=== PATIENT | female | born 1970 | race Caucasian/White ===

== ENCOUNTER 2021-09-21 06:06 | Inpatient (IN) | payer MEDICAID ==
[~2021-09-21] VITALS: Ht 154.9 cm; Wt 90.0 kg
[2021-09-21 07:29] LABS: EOSINOPHILS % 5.2 % (0.0-5.0); HEMATOCRIT. 28.6 % (36.0-48.0); HEMOGLOBIN. 9.4 g/dL (12.0-16.0); LYMPHOCYTES % 16.5 % (20.0-50.0); MEAN CORPUSCULAR HEMOGLOBIN 29.4 pg (28.0-32.0); MEAN CORPUSCULAR VOLUME 89.5 fL (81.0-99.0); MEAN PLATELET VOLUME 9.8 fl (7.4-10.4); MONOCYTES % 5.1 % (2.0-8.0); NEUTROPHILS % 72.2 % (40.0-76.0); PLATELET 154 x1000/uL (130-400); RED BLOOD CELL COUNT 3.19 mill/uL (4.2-5.4); RED CELL DISTRIBUTION WIDTH 16.8 % (11.6-14.6)
[2021-09-21 07:35] LABS: CHLORIDE 104 mEq/L (98-107)
[2021-09-21] MEDS ORDERED: CALCIUM GLUCONATE 1,000 MG in DEXT 5% WATER 100 ML IV ONE (08:15)
[2021-09-21] MEDS ORDERED: INSULIN REGULAR (HUMULIN R) 300UNITS/3ML VIAL IV ONE (08:15)
[2021-09-21] MEDS ORDERED: DEXTROSE 50% WATER 50ML SYRINGE IV ONE ×3 (08:15→11:46)
[2021-09-21] MEDS ORDERED: SODIUM BICARBONATE 8.4% 1 MEQ/ML 50ML SYR IV ONE (08:15)
[2021-09-21] MEDS ORDERED: DIPHENHYDRAMINE 50MG/ML VIAL IV PRN (11:00)
[2021-09-21] MEDS ORDERED: GUAIFENESIN 200MG/10ML SUGAR FREE UDC PO PRN (11:00)
[2021-09-21] MEDS ORDERED: HYDROCODONE/ACETAMINOPHEN 5/325MG TABLET PO PRN (11:00)
[2021-09-21] MEDS ORDERED: NA PHOS,M-B/NA PHOS,DI-BA ENEMA 118ML PR PRN (11:00)
[2021-09-21] MEDS ORDERED: MAGNESIUM/ALUMINUM HYDROXIDE/SIMETHICONE 30ML UDC PO PRN (11:00)
[2021-09-21] MEDS ORDERED: IPRATROPIUM/ALBUTEROL 0.5-3(2.5)MG/3ML NEB NEB PRN (11:00)
[2021-09-21] MEDS ORDERED: LORAZEPAM 2MG/ML CPJ IV PRN (11:00)
[2021-09-21] MEDS ORDERED: DOCUSATE SODIUM 100MG CAPSULE PO PRN (11:00)
[2021-09-21] MEDS ORDERED: ONDANSETRON HCL 4MG/2ML INJ IV PRN (11:00)
[2021-09-21] MEDS: CLONIDINE 0.1MG TABLET PO PRN ×2 (12:41→20:16)
[2021-09-21 16:23] LABS: CHLORIDE 101 mEq/L (98-107)
[2021-09-21] MEDS: ACETAMINOPHEN 325MG TABLET PO PRN (20:16)
[2021-09-21 20:50] LABS: HEPATITIS B SURFACE ANTIGEN NEGATIVE
[2021-09-21] MEDS: ENOXAPARIN 30MG/0.3ML SYR SUBCUT SCH (21:33)
[2021-09-21] MEDS: EPOETIN ALFA-EPBX 10,000 UNIT/ML VIAL SUBCUT SCH (21:33)
[2021-09-21] MEDS ORDERED: NALOXONE HCL 0.4MG/ML VIAL IV PRN (21:45)
[2021-09-21 22:30] VITALS: BP 168/75
[2021-09-21 23:00] VITALS: BP 168/75
[2021-09-22] VITALS (8 sets, daily range): BP systolic 107–191; BP diastolic 72–87
[2021-09-22] MEDS ORDERED: FURO-152 MT (02:04)
[2021-09-22] MEDS ORDERED: GABA-529 PO (02:06)
[2021-09-22] MEDS ORDERED: CALC-1042 MT (02:07)
[2021-09-22] MEDS: CLONIDINE 0.1MG TABLET PO PRN ×3 (03:11→17:16)
[2021-09-22 06:37] LABS: BASOPHILS % 0.9 % (0.0-2.0); EOSINOPHILS % 4.9 % (0.0-5.0); HEMOGLOBIN. 9.6 g/dL (12.0-16.0); LYMPHOCYTES % 23.3 % (20.0-50.0); MEAN CORPUSCULAR HEMOGLOBIN 29.5 pg (28.0-32.0); MEAN CORPUSCULAR VOLUME 89.2 fL (81.0-99.0); MEAN PLATELET VOLUME 10.3 fl (7.4-10.4); MONOCYTES % 6.1 % (2.0-8.0); NEUTROPHILS % 64.8 % (40.0-76.0); PLATELET 141 x1000/uL (130-400); RED BLOOD CELL COUNT 3.24 mill/uL (4.2-5.4); RED CELL DISTRIBUTION WIDTH 16.6 % (11.6-14.6)
[2021-09-22 06:45] LABS: CHLORIDE 105 mEq/L (98-107)
[2021-09-22 06:58] LABS: HDL CHOLESTEROL 48 mg/dL (40-59); T4 FREE 0.76 ng/dL (0.76-1.46)
[2021-09-22 06:59] LABS: LDL CHOLESTEROL 39 mg/dL (5-100)
[2021-09-22] MEDS ORDERED: SODIUM POLYSTYRENE SULFONATE 15 G/60 ML BOT PO SCH (09:00)
[2021-09-22] MEDS: ASPIRIN 81MG EC TABLET PO SCH (09:21)
[2021-09-22] MEDS: HYDRALAZINE HCL 50MG TABLET PO SCH ×2 (13:08→22:00)
[2021-09-22 16:40] LABS: CREATINE KINASE 83 IU/L (26-192)
[2021-09-22 16:41] LABS: CREATINE KINASE MB FRACTION 1.4 ng/mL (0.5-3.6)
[2021-09-22] MEDS ORDERED: CLONIDINE 0.2MG TABLET PO NR (18:00)
[2021-09-22] MEDS: LISINOPRIL 10MG TABLET PO SCH (18:11)
[2021-09-22] MEDS: AMLODIPINE 10MG TABLET PO SCH (18:11)
[2021-09-22] MEDS: ACETAMINOPHEN 325MG TABLET PO PRN (21:55)
[2021-09-22] MEDS: ENOXAPARIN 30MG/0.3ML SYR SUBCUT SCH (21:55)
[2021-09-23] VITALS: BP 165/72
[2021-09-23] MEDS: CLONIDINE 0.3MG TABLET PO PRN ×2 (00:09→17:43)
[2021-09-23 00:44] LABS: CREATINE KINASE 85 IU/L (26-192)
[2021-09-23 00:45] LABS: CREATINE KINASE MB FRACTION 1.6 ng/mL (0.5-3.6)
[2021-09-23 08:00] VITALS: BP 158/70
[2021-09-23 08:03] LABS: CREATINE KINASE 65 IU/L (26-192)
[2021-09-23 08:04] LABS: CREATINE KINASE MB FRACTION 1.5 ng/mL (0.5-3.6)
[2021-09-23] MEDS: ASPIRIN 81MG EC TABLET PO SCH (09:32)
[2021-09-23] MEDS: AMLODIPINE 10MG TABLET PO SCH (09:32)
[2021-09-23] MEDS: LISINOPRIL 10MG TABLET PO SCH (09:33)
[2021-09-23 12:00] VITALS: BP 165/72
[2021-09-23] MEDS ORDERED: DEXTROSE 50% WATER 50ML SYRINGE IV PRN (13:15)
[2021-09-23] MEDS: HYDRALAZINE HCL 50MG TABLET PO SCH ×3 (14:00→22:18)
[2021-09-23 16:00] VITALS: BP 162/75
[2021-09-23] MEDS: BLOOD SUGAR DIAGNOSTIC STRIP TEST SCH ×2 (17:29→21:00)
[2021-09-23] MEDS: INSULIN LISPRO 100 UNITS/ML SUBCUT SCH ×2 (17:39→22:22)
[2021-09-23 20:00] VITALS: BP 157/71
[2021-09-23] MEDS: ACETAMINOPHEN 325MG TABLET PO PRN (22:18)
[2021-09-23] MEDS: ENOXAPARIN 30MG/0.3ML SYR SUBCUT SCH (22:22)
[2021-09-23] MEDS: EPOETIN ALFA-EPBX 10,000 UNIT/ML VIAL SUBCUT SCH (22:23)
[2021-09-24] VITALS: BP 146/72
[2021-09-24 04:00] VITALS: BP_SYST 145; BP_SYST 148; BP_SYST 155; BP_DIAS 59; BP_DIAS 68; BP_DIAS 71
[2021-09-24] MEDS: BLOOD SUGAR DIAGNOSTIC STRIP TEST SCH ×4 (07:00→20:28)
[2021-09-24] MEDS: INSULIN LISPRO 100 UNITS/ML SUBCUT SCH ×4 (07:00→21:56)
[2021-09-24] MEDS: HYDRALAZINE HCL 50MG TABLET PO SCH ×3 (07:00→23:06)
[2021-09-24 08:00] VITALS: BP_SYST 145; BP_SYST 148; BP_SYST 150; BP_DIAS 63; BP_DIAS 72; BP_DIAS 85
[2021-09-24] MEDS: ASPIRIN 81MG EC TABLET PO SCH (08:49)
[2021-09-24] MEDS: AMLODIPINE 10MG TABLET PO SCH (08:50)
[2021-09-24] MEDS: LISINOPRIL 10MG TABLET PO SCH (08:50)
[2021-09-24 12:00] VITALS: BP 147/65
[2021-09-24 16:00] VITALS: BP 158/73
[2021-09-24 20:00] VITALS: BP 113/65
[2021-09-24] MEDS: ENOXAPARIN 30MG/0.3ML SYR SUBCUT SCH (21:51)
[2021-09-24 22:17] LABS: HEPATITIS B SURFACE ANTIGEN NEGATIVE
[2021-09-25] VITALS: BP 145/76
[2021-09-25 04:00] VITALS: BP_SYST 142; BP_SYST 151; BP_SYST 157; BP_DIAS 70; BP_DIAS 79
[2021-09-25] MEDS: HYDRALAZINE HCL 50MG TABLET PO SCH ×2 (06:08→14:00)
[2021-09-25] MEDS: BLOOD SUGAR DIAGNOSTIC STRIP TEST SCH ×3 (06:18→14:50)
[2021-09-25] MEDS: INSULIN LISPRO 100 UNITS/ML SUBCUT SCH ×3 (07:40→17:40)
[2021-09-25 08:00] VITALS: BP 120/66
[2021-09-25] MEDS: ASPIRIN 81MG EC TABLET PO SCH (08:45)
[2021-09-25] MEDS: LISINOPRIL 10MG TABLET PO SCH (08:45)
[2021-09-25] MEDS: AMLODIPINE 10MG TABLET PO SCH (08:45)
[2021-09-25 12:00] VITALS: BP 125/68
[2021-09-25 16:00] VITALS: BP 121/65
[2021-09-25 16:08] VITALS: BP 125/72
== END 2021-09-25 18:40 | disposition home or self-care (01) | DRG 194 ==
LOC: ER 06:06 → MICUSO 10:18 → EDBEDREQSVC 15:00 → 8WST 21:31
PROVIDERS: ADMIT Internal Medicine; ATTEND Internal Medicine
PROC: 5A1D70Z Performance of Urinary Filtration, Intermittent, Less than 6 Hours Per Day (ICD-10-PCS; principal; 2021-09-21)
PROC: 5A1D70Z Performance of Urinary Filtration, Intermittent, Less than 6 Hours Per Day (ICD-10-PCS; 2021-09-23)
PROC: 5A1D70Z Performance of Urinary Filtration, Intermittent, Less than 6 Hours Per Day (ICD-10-PCS; 2021-09-25)
DX: I13.2 Hypertensive heart and chronic kidney disease with heart failure and with stage 5 chronic kidney disease, or end stage renal disease (principal); J96.00 Acute respiratory failure, unspecified whether with hypoxia or hypercapnia; E44.1 Mild protein-calorie malnutrition; N18.6 End stage renal disease; E11.22 Type 2 diabetes mellitus with diabetic chronic kidney disease; D64.9 Anemia, unspecified; E78.00 Pure hypercholesterolemia, unspecified; E87.5 Hyperkalemia; E78.5 Hyperlipidemia, unspecified; I25.10 Atherosclerotic heart disease of native coronary artery without angina pectoris; I50.9 Heart failure, unspecified; F41.9 Anxiety disorder, unspecified; R25.1 Tremor, unspecified; M06.9 Rheumatoid arthritis, unspecified; Z99.2 Dependence on renal dialysis; Z68.37 Body mass index [BMI] 37.0-37.9, adult
CPT/HCPCS: 36415; 71045; 80048; 80053; 80061; 82550; 82553; 82962; 83036; 83880; 84439; 84443; 84484; 85025; 85379; 86705; 86709; 86803; 87340; 93005; 93306; 97162; 99291; J0610; J0885; J1650; J1815; J3490; J7060

== ENCOUNTER 2021-12-21 10:07 | Inpatient (IN) | payer MEDICAID ==
[~2021-12-21] VITALS: Ht 188 cm; Wt 71.2 kg
[~2021-12-21 10:07] MED LIST: CALC-1042 MT; FURO-152 MT; GABA-529 PO
[2021-12-21] MEDS ORDERED: IBUPROFEN 600MG TABLET PO STA (10:30)
[2021-12-21 11:04] LABS: EOSINOPHILS % 5.6 % (0.0-5.0); HEMATOCRIT. 30.7 % (36.0-48.0); HEMOGLOBIN. 9.9 g/dL (12.0-16.0); LYMPHOCYTES % 20.6 % (20.0-50.0); MEAN CORPUSCULAR HEMOGLOBIN 27.6 pg (28.0-32.0); MEAN CORPUSCULAR VOLUME 85.7 fL (81.0-99.0); MONOCYTES % 6.9 % (2.0-8.0); NEUTROPHILS % 65.9 % (40.0-76.0); PLATELET 184 x1000/uL (130-400); RED BLOOD CELL COUNT 3.58 mill/uL (4.2-5.4); RED CELL DISTRIBUTION WIDTH 17.7 % (11.6-14.6)
[2021-12-21 11:13] LABS: CHLORIDE 102 mEq/L (98-107)
[2021-12-21] MEDS ORDERED: HYDROCODONE/ACETAMINOPHEN 5/325MG TABLET PO ONE (14:15)
[2021-12-21] MEDS ORDERED: HYDROCODONE/ACETAMINOPHEN 10/325MG TABLET PO PRN (23:32)
[2021-12-22] MEDS ORDERED: NALOXONE HCL 0.4MG/ML VIAL IV PRN (04:00)
[2021-12-22] MEDS: CLONIDINE 0.1MG TABLET PO PRN ×3 (04:18→14:30)
[2021-12-22] MEDS ORDERED: HYDRALAZINE 20MG/ML VIAL IV NR (09:45)
[2021-12-22] MEDS ORDERED: ACETAMINOPHEN 325MG TABLET PO PRN (09:45)
[2021-12-22] MEDS ORDERED: ONDANSETRON HCL 4MG/2ML INJ IV PRN (09:45)
[2021-12-22] MEDS: HYDRALAZINE HCL 100MG TABLET PO SCH ×3 (09:51→21:52)
[2021-12-22 10:00] VITALS: BP 231/103
[2021-12-22] MEDS ORDERED: NIFEDIPINE XL 60MG TAB PO SCH (10:00)
[2021-12-22 10:15] VITALS: BP 231/103
[2021-12-22 12:00] VITALS: BP 177/80
[2021-12-22] MEDS: LOSARTAN POTASSIUM 100 MG TABLET PO SCH (14:30)
[2021-12-22 15:31] LABS: HEPATITIS B SURFACE ANTIGEN NEGATIVE
[2021-12-22 16:00] VITALS: BP 185/84
[2021-12-22 20:00] VITALS: BP 137/64
[2021-12-22] MEDS ORDERED: DEXTROSE 50% WATER 50ML SYRINGE IV PRN (20:00)
[2021-12-22] MEDS ORDERED: INSLIS SUBCUT (20:12)
[2021-12-22] MEDS ORDERED: INSU100I28 SQ (20:12)
[2021-12-22] MEDS: BLOOD SUGAR DIAGNOSTIC STRIP TEST SCH (21:52)
[2021-12-22] MEDS: CLONIDINE 0.1MG TABLET PO SCH (21:53)
[2021-12-22] MEDS: INSULIN LISPRO 100 UNITS/ML SUBCUT SCH (21:55)
[2021-12-23] VITALS: BP 139/64
[2021-12-23 04:00] VITALS: BP 142/67
[2021-12-23] MEDS: CLONIDINE 0.1MG TABLET PO SCH ×2 (05:45→13:14)
[2021-12-23] MEDS: HYDRALAZINE HCL 100MG TABLET PO SCH ×3 (05:45→22:11)
[2021-12-23] MEDS: BLOOD SUGAR DIAGNOSTIC STRIP TEST SCH ×3 (05:45→21:00)
[2021-12-23 07:03] LABS: BASOPHILS % 1.4 % (0.0-2.0); EOSINOPHILS % 7.5 % (0.0-5.0); HEMATOCRIT. 29.4 % (36.0-48.0); HEMOGLOBIN. 9.4 g/dL (12.0-16.0); LYMPHOCYTES % 22.2 % (20.0-50.0); MEAN CORPUSCULAR HEMOGLOBIN 28.2 pg (28.0-32.0); MEAN CORPUSCULAR VOLUME 87.8 fL (81.0-99.0); MEAN PLATELET VOLUME 10.3 fl (7.4-10.4); MONOCYTES % 8.4 % (2.0-8.0); NEUTROPHILS % 60.5 % (40.0-76.0); PLATELET 176 x1000/uL (130-400); RED BLOOD CELL COUNT 3.35 mill/uL (4.2-5.4); RED CELL DISTRIBUTION WIDTH 17.8 % (11.6-14.6)
[2021-12-23] MEDS: INSULIN LISPRO 100 UNITS/ML SUBCUT SCH ×4 (07:50→22:12)
[2021-12-23 08:00] VITALS: BP 154/69
[2021-12-23] MEDS: NIFEDIPINE XL 60MG TAB PO SCH ×2 (09:51→17:00)
[2021-12-23] MEDS: LOSARTAN POTASSIUM 100 MG TABLET PO SCH (09:51)
[2021-12-23 12:00] VITALS: BP 180/64
[2021-12-23 16:00] VITALS: BP 170/74
[2021-12-23 20:00] VITALS: BP 175/80
[2021-12-23] MEDS: CLONIDINE 0.1MG TABLET PO PRN (20:00)
[2021-12-23] MEDS ORDERED: INSULIN GLARGINE UD 100 UNITS/ML SYR SUBCUT NR (20:45)
[2021-12-23] MEDS: CLONIDINE 0.2MG TABLET PO SCH (22:11)
[2021-12-24] VITALS: BP 125/54
[2021-12-24 04:00] VITALS: BP 151/65
[2021-12-24] MEDS: CLONIDINE 0.2MG TABLET PO SCH ×2 (06:35→13:16)
[2021-12-24] MEDS: HYDRALAZINE HCL 100MG TABLET PO SCH ×2 (06:35→13:16)
[2021-12-24] MEDS: BLOOD SUGAR DIAGNOSTIC STRIP TEST SCH ×2 (06:47→13:19)
[2021-12-24] MEDS: INSULIN LISPRO 100 UNITS/ML SUBCUT SCH ×2 (07:50→13:19)
[2021-12-24 08:00] VITALS: BP 146/78
[2021-12-24] MEDS: LOSARTAN POTASSIUM 100 MG TABLET PO SCH (09:58)
[2021-12-24] MEDS: NIFEDIPINE XL 60MG TAB PO SCH (09:58)
[2021-12-24 12:00] VITALS: BP 130/70
[2021-12-24 13:33] VITALS: BP 20/166
== END 2021-12-24 18:50 | disposition home or self-care (01) | DRG 199 ==
LOC: ER 10:16 → MICUSO 15:02 → 6WST 12-22 09:36
PROVIDERS: ADMIT Internal Medicine; ATTEND Internal Medicine
PROC: 5A1D70Z Performance of Urinary Filtration, Intermittent, Less than 6 Hours Per Day (ICD-10-PCS; 2021-12-21)
PROC: 5A1D70Z Performance of Urinary Filtration, Intermittent, Less than 6 Hours Per Day (ICD-10-PCS; principal; 2021-12-23)
DX: I16.0 Hypertensive urgency (principal); R18.8 Other ascites; N18.6 End stage renal disease; I31.3 Pericardial effusion (noninflammatory); E11.22 Type 2 diabetes mellitus with diabetic chronic kidney disease; D64.9 Anemia, unspecified; K52.9 Noninfective gastroenteritis and colitis, unspecified; I12.0 Hypertensive chronic kidney disease with stage 5 chronic kidney disease or end stage renal disease; E11.51 Type 2 diabetes mellitus with diabetic peripheral angiopathy without gangrene; Z20.822 Contact with and (suspected) exposure to COVID-19; E78.00 Pure hypercholesterolemia, unspecified; N20.0 Calculus of kidney; G89.29 Other chronic pain; Z99.2 Dependence on renal dialysis; Z79.84 Long term (current) use of oral hypoglycemic drugs; Z79.899 Other long term (current) drug therapy
CPT/HCPCS: 36415; 71045; 74176; 80048; 80053; 82962; 84484; 85025; 86705; 86709; 86803; 87340; 87426; 93005; 93306; 99285; A6261; C1893; J0360; J1815